=== PATIENT | female | born 1950 | race Caucasian/White ===

== ENCOUNTER 2017-07-27 11:58 | Emergency (ER) | payer OTHER, BC ==
[2017-07-27 12:06] VITALS: BP 161/94; PULSE 100; TEMP 97.8; BMI 24.4
--- NOTE | 2017-07-27 14:06 | PDOC ---
History of Present Illness - General Chief Complaint: Injury Stated Complaint: HEAD INJURY Time Seen by Provider: 07/27/17 13:33 History Source: Patient - History of Present Illness Timing/Duration: reports: 1 week Associated Symptoms: reports: fatigue, insomnia, nausea/vomiting. denies: loss of consciousness, seizures, slurred speech, vision changes Past History - Past Medical History Allergies/Adverse Reactions: Allergies Allergy/AdvReac Type Severity Reaction Status Date / Time iodine Allergy Mild Verified 07/27/17 12:02 Sulfa (Sulfonamide Allergy Mild Nausea Verified 07/27/17 12:02 Antibiotics) Home Medications: Ambulatory Orders Alprazolam [Alprazolam Odt] 0.25 mg PO TID #15 07/21/14 Ezetimibe [Zetia] 10 mg PO DAILY tablet 07/21/14 Venlafaxine HCl [Effexor Xr] 75 mg PO DAILY #7 07/21/14 COPD: No Hypercholesterolemia: Yes Other medical history: MIGRAINES - Surgical History Appendectomy: Yes - Immunization History Td Vaccination: Yes Immunization Up to Date: Yes - Suicide/Smoking/Psychosocial Hx Smoking Status: No Smoking History: Never smoked Years of Tobacco Use: 0 Number of Cigarettes Smoked Daily: 0 Cigars Per Day: 0 Information on smoking cessation initiated: No Hx Alcohol Use: No Drug/Substance Use Hx: No Substance Use Type: None Review of Systems - Review of Systems Constitutional: No: Fever HEENTM: No: Blurred Vision Respiratory: No: Shortness of Breath Cardiac (ROS): No: Chest Pain ABD/GI: Yes: Nausea. No: Vomiting Neurological: Yes: Headache. No: Numbness, Seizure, Tingling, Weakness, Dizziness *Physical Exam - Vital Signs Last Vital Signs Temp Pulse Resp BP Pulse Ox 97.8 F 100 H 18 161/94 100 07/27/17 12:02 07/27/17 12:02 07/27/17 12:02 07/27/17 12:02 07/27/17 12:02 - Physical Exam General Appearance: Yes: Appropriately Dressed. No: Apparent Distress HEENT: positive: Normal Voice Respiratory/Chest: negative: Respiratory Distress Extremity: positive: Normal Inspection Integumentary: positive: Dry, Warm Neurologic: positive: Fully Oriented, Alert, Normal Mood/Affect, Motor Strength 5/5, Finger to Nose. 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 Patient states approximately 1 week ago while giving her cat a bath, she accidentally banged left side of head against a table. States impact caused her to "fly across the room". Since then, has not felt like herself, complaining of headache, nausea, insomnia, and intermittent episodes of difficulty finding words. Denies LOC, dizziness, seizures, slurred speech, vomiting, focal weakness. Not on any blood thinners. States she contact her her bucket chucker several days ago who started her on prednisone for unclear reasons , Zofran, and Clonopin. Pt well-appearing and stable with no focal deficits. Most likely post concussive syndrome. Will scan head rule out bleed, though have very low clinical suspicion. Anticipate discharge with information on concussion and have patient continue to follow-up with her bucket chucker 07/27/17 14:50 CT read as no acute intracranial pathology. Patient remains well appearing, in stable in ED. Will DC with concussive instructions and have patient continue to follow-up with her PMD *DC/Admit/Observation/Transfer Diagnosis at time of Disposition: Mild closed head injury Qualifiers: Encounter type: initial encounter Qualified Code(s): S09.90XA - Unspecified injury of head, initial encounter - Discharge Dispostion Disposition: HOME Condition at time of disposition: Good - Referrals Referrals: Ben Skinner MD [Primary Care Provider] - - Patient Instructions Printed Discharge Instructions: Postconcussion Syndrome, DI for Closed Head Injury Additional Instructions: You are most likely experiencing post concussive syndrome which can present with many of the symptoms that you are complaining of. Syndrome usually gradually gets better over weeks or months. Continue taking medications as needed as prescribed by your bucket chucker and follow-up with [facility] - Post Discharge Activity
== END 2017-07-27 15:06 | disposition home or self-care (01) ==
LOC: JERFT 11:58
DX: S09.8XXA Other specified injuries of head, initial encounter (principal); W22.8XXA Striking against or struck by other objects, initial encounter; Y93.K9 Activity, other involving animal care; Y92.018 Other place in single-family (private) house as the place of occurrence of the external cause; Y99.8 Other external cause status
CPT/HCPCS: 70450-TC; 99281-25

== ENCOUNTER 2020-12-27 05:20 | Day surgery (SDC) | payer OTHER, BC ==
[2020-12-25 17:06] VITALS: BMI 26.1
[2020-12-27 09:24] VITALS: TEMP 97.8
[2020-12-27 10:20] VITALS: BP 115/76; PULSE 77
== END 2020-12-27 10:30 | disposition home or self-care (01) ==
LOC: JASU-ENDO 05:20
PROVIDERS: ATTEND Internal Medicine Gastroenterology
PROC: 0DB68ZX Excision of Stomach, Via Natural or Artificial Opening Endoscopic, Diagnostic (ICD-10-PCS; 2020-12-27)
PROC: 0DJD8ZZ Inspection of Lower Intestinal Tract, Via Natural or Artificial Opening Endoscopic (ICD-10-PCS; principal; 2020-12-27 08:49)
DX: K64.8 Other hemorrhoids (principal); K25.9 Gastric ulcer, unspecified as acute or chronic, without hemorrhage or perforation; K29.80 Duodenitis without bleeding
CPT/HCPCS: 88305-TC; 88342-TC

== ENCOUNTER 2022-05-19 17:21 | Emergency (ER) | payer OTHER, BC ==
[2022-05-19] MEDS ORDERED: ALBUTEROL SO4 2.5/IPRATROPIUM 0.5 INH SOL 3 ML VIAL.NEB. NEB ONE ×2 (18:23→19:40)
[2022-05-19 18:26] VITALS: BP 134/80; PULSE 84; RESP 18; TEMP 98; BMI 25.1
[2022-05-19] MEDS ORDERED: ACETAMINOPHEN 500 MG TABLET (FP) PO ONE (19:41)
[2022-05-19] MEDS ORDERED: ACETAMINOPHEN 500 MG TABLET (FP) ONE (20:57)
== END 2022-05-19 21:03 | disposition home or self-care (01) ==
LOC: JER 17:21
PROC: 3E0F7GC Introduction of Other Therapeutic Substance into Respiratory Tract, Via Natural or Artificial Opening (ICD-10-PCS; principal; 2022-05-19)
PROC: 3E0F7GC Introduction of Other Therapeutic Substance into Respiratory Tract, Via Natural or Artificial Opening (ICD-10-PCS; 2022-05-19)
DX: J44.9 Chronic obstructive pulmonary disease, unspecified (principal)
CPT/HCPCS: 0241U-QW; 71046-TC-FY; 93005; 93010; 99285-25

== ENCOUNTER 2022-11-24 14:10 | Emergency (ER) | payer OTHER, BC ==
[2022-11-24 14:30] VITALS: BP 124/78; PULSE 93; RESP 16; TEMP 98.4; BMI 25.1
== END 2022-11-24 15:02 | disposition home or self-care (01) ==
LOC: FER 14:10
DX: S96.912A Strain of unspecified muscle and tendon at ankle and foot level, left foot, initial encounter (principal); M79.672 Pain in left foot; W10.1XXA Fall (on)(from) sidewalk curb, initial encounter; Y92.480 Sidewalk as the place of occurrence of the external cause
CPT/HCPCS: 73630-TC-LT; 99283-25

== ENCOUNTER 2023-02-25 16:41 | Emergency (ER) | payer OTHER, BC ==
[2023-02-25 16:58] VITALS: BP 130/81; PULSE 68; RESP 16; TEMP 98.5; BMI 24.2
== END 2023-02-25 19:56 | disposition home or self-care (01) ==
LOC: FER 16:41
DX: S90.122A Contusion of left lesser toe(s) without damage to nail, initial encounter (principal); W22.09XA Striking against other stationary object, initial encounter
CPT/HCPCS: 73630-TC-LT; 99283-25